=== PATIENT | female | born 1990 | race American Indian/Alaskan Native ===

== ENCOUNTER 2016-04-13 17:24 | Emergency (ER) | payer MEDICAID ==
[2016-04-13 17:35] VITALS: BP 122/81
[2016-04-13 18:58] LABS: Basophils % (Auto) 1.1 % (0.0-1.8); Eosinophils % (Auto) 0.7 % (0.0-4.3); Hematocrit 39.6 % (30.3-42.9); Hemoglobin 12.7 gm/dl (10.1-14.3); Mean Corpuscular HGB Conc 32 % (30-34); Mean Corpuscular Hemoglobin 29 pg (28-32); Mean Corpuscular Volume 92 fl (79-97); Platelet Count 213 K/mm3 (140-440); Red Blood Count 4.32 M/mm3 (3.65-5.03); Red Cell Distribution Width 13.6 % (13.2-15.2)
[2016-04-13 19:20] LABS: Anion Gap 18 mmol/L; BUN/Creatinine Ratio 17.14; Blood Urea Nitrogen 12 mg/dL (7-17); Calcium 9.3 mg/dL (8.4-10.2); Carbon Dioxide 23 mmol/L (22-30); Chloride 98.2 mmol/L (98-107); Glucose 87 mg/dL (65-100); Potassium 4.1 mmol/L (3.6-5.0); Sodium 135 mmol/L (137-145)
--- NOTE | 2016-04-14 07:31 | ED Elopement Review ---
ED Pt Elopement review - Results review Lab results: Laboratory Tests 04/13/16 04/13/16 04/13/16 18:43 18:43 18:43 WBC 5.0 RBC 4.32 Hgb 12.7 Hct 39.6 MCV 92 MCH 29 MCHC 32 RDW 13.6 Plt Count 213 Lymph % (Auto) 41.8 H [place] % (Auto) 5.5 Eos % (Auto) 0.7 Baso % (Auto) 1.1 Lymph # 2.1 [place] # 0.3 Eos # 0.0 Baso # 0.1 Seg Neutrophils % 50.9 Seg Neutrophils # 2.5 Sodium 135 L Potassium 4.1 Chloride 98.2 Carbon Dioxide 23 Anion Gap 18 BUN 12 Creatinine 0.7 Estimated GFR > 60 BUN/Creatinine Ratio 17.14 Glucose 87 Calcium 9.3 Troponin T < 0.010 HCG, Qual Negative 04/13/16 23:50 WBC RBC Hgb Hct MCV MCH MCHC RDW Plt Count Lymph % (Auto) [place] % (Auto) Eos % (Auto) Baso % (Auto) Lymph # [place] # Eos # Baso # Seg Neutrophils % Seg Neutrophils # Sodium Potassium Chloride Carbon Dioxide Anion Gap BUN Creatinine Estimated GFR BUN/Creatinine Ratio Glucose Calcium Troponin T < 0.010 HCG, Qual - Call Back decision Pt Call Back Decision: No action required
== END 2016-04-14 02:09 | disposition left against medical advice (07) ==
LOC: ED 17:24
DX: R07.9 Chest pain, unspecified (principal); Z53.21 Procedure and treatment not carried out due to patient leaving prior to being seen by health care provider
CPT/HCPCS: 36415; 80048; 84484; 84703; 85025; 93005; 93010

== ENCOUNTER 2016-04-14 09:40 | Emergency (ER) | payer MEDICAID ==
[2016-04-14 09:58] VITALS: BP 100/66
--- NOTE | 2016-04-14 10:39 | Emergency Department Report ---
ED Chest Pain HPI - General Chief Complaint: Chest Pain Stated Complaint: CHEST PAINS Time Seen by Provider: 04/14/16 10:17 Source: patient Mode of arrival: Ambulatory Limitations: No Limitations - History of Present Illness MD Complaint: chest pain -: Gradual Pain Location: left chest Pain Radiation: back Severity scale (0 -10): 3 Quality: sharp Improves With: nothing Worsens With: inspiration, other (coughing) Context: other (stopped smoking the day before symptoms........) re: denies: nausea, vomting, diaphoresis, dyspnea, sense of impending doom Other Symptoms: cough. denies: leg swelling, palpitations - Related Data Previous Rx's Medication Instructions Recorded Last Taken Type ALBUTEROL Inhaler [ProAir HFA 1 puff IH QID #1 inha 04/14/16 Unknown Rx Inhaler] predniSONE [Deltasone] 50 mg PO QDAY #5 tab 04/14/16 Unknown Rx Allergies Allergy/AdvReac Type Severity Reaction Status Date / Time No Known Allergies Allergy Unverified 04/13/16 17:30 RUPESH score - Rupesh Score Aspirin use within the Past 7 Days: (0) No 3 or more CAD Risk Factors: (0) No 2 or more Angina events in past 24 hrs: (0) No Known CAD with more than 50% Stenosis: (0) No Elevated Cardiac Markers: (0) No ST Deviation Greater than 0.5mm: (0) No ED Review of Systems ROS: Stated complaint: CHEST PAINS Other details as noted in HPI Constitutional: denies: chills, diaphoresis, fever, malaise Eyes: denies: eye pain, eye discharge, vision change ENT: denies: ear pain, throat pain Respiratory: cough. denies: orthopnea, shortness of breath, SOB with exertion, SOB at rest, stridor, wheezing Cardiovascular: chest pain. denies: palpitations Endocrine: no symptoms reported Gastrointestinal: denies: abdominal pain, nausea, vomiting, diarrhea Genitourinary: denies: urgency, dysuria, discharge Musculoskeletal: denies: back pain, joint swelling, arthralgia Skin: denies: rash, lesions Neurological: denies: headache, weakness, paresthesias Psychiatric: denies: anxiety, depression Hematological/Lymphatic: denies: easy bleeding, easy bruising ED Past Medical Hx - Past Medical History Previous Medical History?: No - Surgical History Past Surgical History?: No - Social History Smoking Status: Former Smoker Substance Use Type: Alcohol - Medications Home Medications: Home Medications Medication Instructions Recorded Confirmed Last Taken Type ALBUTEROL Inhaler [ProAir HFA 1 puff IH QID #1 inha 04/14/16 Unknown Rx Inhaler] predniSONE [Deltasone] 50 mg PO QDAY #5 tab 04/14/16 Unknown Rx ED Physical Exam - General Limitations: No Limitations General appearance: alert, in no apparent distress - Head Head exam: Present: atraumatic, normocephalic - Eye Eye exam: Present: normal appearance, PERRL, EOMI - ENT ENT exam: Present: normal exam, mucous membranes moist - Neck Neck exam: Present: normal inspection - Respiratory Respiratory exam: Present: normal lung sounds bilaterally, chest wall tenderness. Absent: respiratory distress, wheezes, rales, rhonchi, stridor, accessory muscle use, decreased breath sounds, prolonged expiratory - Cardiovascular Cardiovascular Exam: Present: regular rate, normal rhythm. Absent: systolic murmur, diastolic murmur, rubs, gallop - GI/Abdominal GI/Abdominal exam: Present: soft, normal bowel sounds. Absent: distended, guarding, rebound, rigid - Extremities Exam Extremities exam: Present: normal inspection - Back Exam Back exam: Present: normal inspection. Absent: CVA tenderness (R), CVA tenderness (L) - Neurological Exam Neurological exam: Present: alert, oriented X3 - Psychiatric Psychiatric exam: Present: normal affect, normal mood - Skin Skin exam: Present: warm, dry, intact, normal color. Absent: rash ED Course Vital Signs 04/14/16 09:55 Temperature 98.4 F Pulse Rate 74 Respiratory 16 Rate Blood Pressure 100/66 O2 Sat by Pulse 100 Oximetry ED Medical Decision Making - Lab Data Result diagrams: 04/14/16 10:52 04/14/16 10:52 - EKG Data EKG shows normal: sinus rhythm Rate: normal - Radiology Data Radiology results: report reviewed, image reviewed - Medical Decision Making Patient's age is less than 50, heart rate is less than 100, O2 sats are greater than 95%, patient has no DVT history, no trauma or surgery in the past 4 weeks, no hemoptysis, no exogenous estrogen, and no leg edema,. PERC 0 Critical care attestation.: If time is entered above; I have spent that time in minutes in the direct care of this critically ill patient, excluding procedure time. ED Disposition Clinical Impression: Cough Is pt being admited?: No Condition: Stable Instructions: Chronic Cough (ED) Prescriptions: ALBUTEROL Inhaler [ProAir HFA Inhaler] 1 puff IH QID #1 inha predniSONE [Deltasone] 50 mg PO QDAY #5 tab Referrals: LIZABETH RUCKER MD [Referring] - 3-5 Days Time of Disposition: 12:24
[2016-04-14 11:04] LABS: Hemoglobin 12.1 gm/dl (10.1-14.3); Mean Corpuscular HGB Conc 33 % (30-34); Mean Corpuscular Hemoglobin 30 pg (28-32); Mean Corpuscular Volume 92 fl (79-97); Platelet Count 207 K/mm3 (140-440); Red Blood Count 4.04 M/mm3 (3.65-5.03); Red Cell Distribution Width 13.8 % (13.2-15.2); White Blood Count 5.1 K/mm3 (4.5-11.0)
[2016-04-14 11:23] LABS: Alanine Aminotransferase 10 units/L (7-56); Albumin 4.2 g/dL (3.9-5); Albumin/Globulin Ratio 1.4 %; Alkaline Phosphatase 39 units/L (35-129); Anion Gap 17 mmol/L; Bilirubin,Total 0.2 mg/dL (0.1-1.2); Blood Urea Nitrogen 12 mg/dL (7-17); Carbon Dioxide 23 mmol/L (22-30); Glucose 88 mg/dL (65-100); Potassium 4.3 mmol/L (3.6-5.0); Sodium 138 mmol/L (137-145); Total Protein 7.2 g/dL (6.3-8.2)
--- NOTE | 2016-04-14 12:18 | XRay Report ---
ROUTINE CHEST, TWO VIEWS: PA and lateral views demonstrate the heart and mediastinal contour to be of normal size and shape. The lungs are clear and fully expanded and the soft tissues and bony structures are normal. IMPRESSION: Normal study.
== END 2016-04-14 12:39 ==
LOC: ED 09:40
DX: R05 Cough (principal); R07.89 Other chest pain; Z87.891 Personal history of nicotine dependence
CPT/HCPCS: 36415; 71020; 80053; 81025; 85027; 93005; 93010

== ENCOUNTER 2017-08-14 13:58 | Emergency (ER) | payer SELFPAY ==
[2017-08-14 14:04] VITALS: BP 108/73
--- NOTE | 2017-08-14 15:37 | Emergency Department Report ---
Chief Complaint: Medical Clearance Stated Complaint: ILL Time Seen by Provider: 08/14/17 15:27 - HPI History of Present Illness: 27-year-old healthy female presents with 2-3 months of malaise. Abdominal bloating. Cold intolerance. No weight loss or weight gain. She feels as if her "food is just sitting in my stomach." Denies any pain. - ROS Review of Systems: 10 point review of systems reviewed otherwise negative with exception of HPI. No fever. No abdominal pain. No diarrhea. No chest pain. - Exam Vital Signs: Vital Signs 08/14/17 14:01 Temperature 98.6 F Pulse Rate 94 H Respiratory 20 Rate Blood Pressure 108/73 O2 Sat by Pulse 98 Oximetry Physical Exam: General: Well-appearing, no acute distress HEENT: Normocephalic atraumatic anicteric sclera Nose: no rhinorrhea Oropharynx: Clear mucous membranes no lesions Neck: supple, no meningismus Chest: Clear to auscultation bilaterally no rales rhonchi no wheezes Cardiac: Regular rate and rhythm no murmurs no rubs no gallops Abdomen: Soft nontender nondistended positive bowel sounds no guarding Extremities: No cyanosis no clubbing no edema Neuro: Moves all extremities 4, no gross deficits Psychiatric: Alert and oriented 4 normal affect normal judgment normal insight MSE screening note: Ms. Small presents with 2-3 months of bloating malaise. Differential diagnosis includes thyroid disease versus versus metabolic disorder such as diabetes. Also possibility of IBS. Currently no evidence of life or limb threatening condition. I referred her to outside clinic. ED Dis[place] [facility] [place] Clinical Impression: Malaise, Abdominal bloating Disposition: - TO HOME OR SELFCARE Is pt being admited?: No Does the pt Need Aspirin: No Condition: Stable Instructions: Irritable Bowel Syndrome (ED) Referrals: [facility] [Outside] - 3-5 Days Forms: Work/School Release Form(ED)
== END 2017-08-14 15:46 | disposition home or self-care (01) ==
LOC: ED 13:58
DX: R53.81 Other malaise (principal); R14.0 Abdominal distension (gaseous)
CPT/HCPCS: 99282

== ENCOUNTER 2021-07-03 12:56 | Emergency (ER) | payer MEDICAID ==
--- NOTE | 2021-07-03 14:48 | Emergency Department Report ---
ED Abdominal Pain HPI - General Chief Complaint: Abdominal Pain Stated Complaint: STOMACH PAIN Time Seen by Provider: 07/03/21 14:34 Source: patient Mode of arrival: Ambulatory Limitations: No Limitations - History of Present Illness Initial Comments: 31-year-old female who denies any significant past medical history presents to the ER today with complaints of lower abdominal pain. Patient states that symptoms started couple days ago. She described the pain as a constant pain. She also admits that she started having vaginal spotting recently. She states last menstrual cycle was May 20, 2021. She has not taken a home test. She is not currently any control. She denies any nausea, vomiting or diarrhea constipation. She denies any UTI symptoms or vaginal discharge. -: days(s) (2) Severity scale (0 -10): 8 - Related Data Previous Rx's Medication Instructions Recorded Last Taken Type Albuterol Mdi (or & Nicu Only) 1 puff IH QID #1 inha 04/14/16 Unknown Rx [ProAir HFA Inhaler] predniSONE [Deltasone] 50 mg PO QDAY #5 tab 04/14/16 Unknown Rx Allergies Allergy/AdvReac Type Severity Reaction Status Date / Time No Known Allergies Allergy Unverified 04/13/16 17:30 ED Review of Systems ROS: Stated complaint: STOMACH PAIN Other details as noted in HPI Comment: All other systems reviewed and negative Constitutional: denies: chills, fever Eyes: denies: eye pain, eye discharge, vision change ENT: denies: ear pain, throat pain Gastrointestinal: abdominal pain. denies: nausea, vomiting, diarrhea, constipation, hematemesis, melena, hematochezia Genitourinary: abnormal menses. denies: urgency, dysuria, frequency, hematuria, discharge Musculoskeletal: denies: back pain, joint swelling, arthralgia, myalgia Neurological: denies: headache, weakness, numbness, paresthesias, confusion, abnormal gait, vertigo Psychiatric: denies: anxiety, depression, auditory hallucinations, visual hallucinations, homicidal thoughts, suicidal thoughts Hematological/Lymphatic: denies: easy bleeding, easy bruising, swollen glands ED Past Medical Hx - Past Medical History Previous Medical History?: No Additional medical history: bronchitis - Surgical History Past Surgical History?: No - Social History Smoking Status: Never Smoker Substance Use Type: Marijuana - Medications Home Medications: Home Medications Medication Instructions Recorded Confirmed Last Taken Type Albuterol Mdi (or & Nicu Only) 1 puff IH QID #1 inha 04/14/16 Unknown Rx [ProAir HFA Inhaler] predniSONE [Deltasone] 50 mg PO QDAY #5 tab 04/14/16 Unknown Rx ED Physical Exam - General Limitations: No Limitations General appearance: alert, in no apparent distress - Head Head exam: Present: atraumatic, normocephalic, normal inspection - Eye Eye exam: Present: normal appearance, PERRL, EOMI Pupils: Present: normal accommodation - Respiratory Respiratory exam: Absent: respiratory distress - Cardiovascular Cardiovascular Exam: Present: regular rate - GI/Abdominal GI/Abdominal exam: Present: soft, tenderness (mild suprapubic ttp). Absent: distended, guarding, rebound, rigid - Neurological Exam Neurological exam: Present: alert, oriented X3, CN II-XII intact, normal gait - Psychiatric Psychiatric exam: Present: normal affect, normal mood - Skin Skin exam: Present: intact ED Course Vital Signs 07/03/21 13:39 Temperature 98.9 F Pulse Rate 82 Respiratory 18 Rate Blood Pressure 121/78 Blood Pressure 121/78 [Right] O2 Sat by Pulse 100 Oximetry ED Medical Decision Making - Lab Data Result diagrams: 07/03/21 15:38 07/03/21 15:38 - Radiology Data Radiology results: report reviewed Patient: ROSANA GARCIA R#: [id number] : 1990 Acct:[id number] Age/Sex: 31 / F ADM Date: 07/03/21 Loc: ED Attending Dr: Ordering Physician: TOYA OTOOLE Date of Service: 07/03/21 Procedure(s): US OB <= 14 weeks fetus Accession Number(s): [id number] cc: TOYA OTOOLE ULTRASOUND PELVIS INDICATION: Negative. Vaginal bleeding. TECHNIQUE: Transabdominal. Duplex Color Doppler used: Yes. COMPARISON: None available FINDINGS: Uterus: Present. Size: 8.9 cm. Endometrial complex: Single viable intrauterine dated 13 weeks 5 days. heart tones 154 bpm. Mass lesions: None. Additional findings: None. Right Ovary -- Normal. Blood flow: Normal. Cyst or mass: None. Left Ovary-- Normal. Blood flow: Normal. Cyst or mass: None. Urinary Bladder: Normal. Free Fluid: None. Additional Findings: None. IMPRESSION: Viable intrauterine dated 13 weeks 5 days. Signer Name: Elkin Baker MD Signed: 07/03/2021 5:37 PM Workstation Name: [id number] Transcribed By: DAVE Dictated By: Elkin Baker MD Electronically Authenticated By: Elkin Baker MD Signed Date/Time: 07/03/211736 DD/ 34 TD/TT: - Medical Decision Making All labs results reviewed. Urine appears to be more contaminated than treat UTI. CBC and CMP shows no significant abnormality requiring emergent attention or treatment. Blood type was a positive and therefore no indication for RhoGAM at this time. Her quantitative hCG measured at [id number]. OB ultrasound shows that she is 13 weeks and 5 days IUP with a heart rate of 154. Patient currently resting comfortably in the bed. She is not toxic or ill- appearing and not in any significant distress. She has a benign abdominal exam. Her vital signs are stable. Discussed results with patient, suspected diagnosis and treatment plan with patient. She will be given referral information to OB. Patient expressed understanding for instructions and agree with plan. Patient was stable at time of discharge Critical care attestation.: If time is entered above; I have spent that time in minutes in the direct care of this critically ill patient, excluding procedure time. ED Disposition Clinical Impression: Threatened miscarriage Disposition: 01 HOME / SELF CARE / HOMELESS Is pt being admited?: No Does the pt Need Aspirin: No Condition: Stable Instructions: Threatened Miscarriage, Abdominal Pain (ED) Additional Instructions: You can take Tylenol as needed to help with pain. I recommend that you start vitamins which she can purchase from [id number]. I also r ecommend that she do set up appointment with [facility] to start care. Return to the ER if your symptoms changes or worsens in any way. Referrals: PRIMARY CARE, [Primary Care Provider] - 3-5 Days [facility] [Provider Group] - 3-5 Days [facility] [Provider Group] - 3-5 Days Forms: Work/School Release Form(ED) Time of Disposition: 17:43
[2021-07-03 15:02] LABS: Bacteria,Urine 1+ /HPF (Negative); Bilirubin,Urine NEG (Negative); Blood,Urine SM (Negative); Color,Urine Yellow (Yellow); Mucus,Urine 3+ /HPF; Protein,Urine <15 mg/dL mg/dL (Negative)
[2021-07-03 15:13] LABS: HCG Qualitative,Urine Positive (Negative)
[2021-07-03 16:25] LABS: Basophils % (Auto) 0.5 % (0.0-1.8); Eosinophils % (Auto) 0.3 % (0.0-4.3); Hematocrit 34.4 % (30.3-42.9); Hemoglobin 11.4 gm/dl (10.1-14.3); Lymphocytes # (Auto) 1.7 K/mm3 (1.2-5.4); Lymphocytes % (Auto) 22.1 % (13.4-35.0); Mean Corpuscular HGB Conc 33 % (30-34); Mean Corpuscular Volume 93 fl (79-97); Monocytes # (Auto) 0.4 K/mm3 (0.0-0.8); Monocytes % (Auto) 5.1 % (0.0-7.3); Platelet Count 207 K/mm3 (140-440); Red Cell Distribution Width 13.5 % (13.2-15.2)
[2021-07-03 16:33] LABS: Alanine Aminotransferase 8 units/L (7-56); Albumin 3.9 g/dL (3.9-5); Blood Urea Nitrogen 6 mg/dL (7-17); Calcium 9.5 mg/dL (8.4-10.2); Hemolysis Index 2
[2021-07-03 16:38] LABS: BUN/Creatinine Ratio 12
--- NOTE | 2021-07-03 17:41 | Ultrasound Report ---
ULTRASOUND PELVIS INDICATION: Negative. Vaginal bleeding. TECHNIQUE: Transabdominal. Duplex Color Doppler used: Yes. COMPARISON: None available FINDINGS: Uterus: Present. Size: 8.9 cm. Endometrial complex: Single viable intrauterine dated 13 weeks 5 days. heart tones 15 4 bpm. Mass lesions: None. Additional findings: None. Right Ovary -- Normal. Blood flow: Normal. Cyst or mass: None. Left Ovary-- Normal. Blood flow: Normal. Cyst or mass: None. Urinary Bladder: Normal. Free Fluid: None. Additional Findings: None. IMPRESSION: Viable intrauterine dated 13 weeks 5 days. Signer Name: Elkin Baker MD Signed: 07/03/2021 5:37 PM Workstation Name: [id number]
[2021-07-03 17:49] VITALS: BP 122/85
== END 2021-07-03 17:48 | disposition home or self-care (01) ==
LOC: ED 12:56
DX: O20.0 Threatened abortion (principal); Z3A.13 13 weeks gestation of pregnancy; F12.90 Cannabis use, unspecified, uncomplicated
CPT/HCPCS: 36415; 76801; 80053; 81001; 81025; 84702; 85025; 86900; 86901; 87086; 99284